=== PATIENT | male | born 1985 | race Caucasian/White ===

== ENCOUNTER 2019-10-12 19:18 | Emergency (ER) | payer SELFPAY ==
[~2019-10-12] VITALS: Ht 182.9 cm; Wt 83.9 kg
--- NOTE | 2019-10-12 19:52 | NUR ---
Pt called from waiting room, no answer
[2019-10-12 20:37] VITALS: BP_SYST 140
--- NOTE | 2019-10-12 20:42 | NUR ---
Patient triaged and placed in waiting room. VSS and patient appears in no acute distress at this time. Accompanied by self, awaiting available bed, and MD notified of need for MSE.
--- NOTE | 2019-10-12 22:10 | NUR ---
Patient to ER bed h1 for evaluation. Side rails up. Report given to Collin PARKER.
--- NOTE | 2019-10-12 22:15 | NUR ---
Pt AAOx4 ambulated into ED c/o 01/17 pain to posterior neck, lower back, L arm radiating to L wrist s/p TC @ 1030am this morning. Pt was feeling weak all day and wishes to be evaluated. +CMS to bilateral upper and lower extremities. Will continue to monitor.
--- NOTE | 2019-10-12 22:20 | NUR ---
ER Dr. Perea at bedside examining patient.
[2019-10-12] MEDS ORDERED: KETOROLAC TROMETHAMINE 60 MG/2 ML VIAL IM ONE (22:30)
--- NOTE | 2019-10-12 22:32 | NUR ---
Patient ambulated with lead medical technologist to radiology department for xrays.
--- NOTE | 2019-10-12 23:43 | NUR ---
Patient given written and verbal discharge instructions and verbalizes understanding. ER MD discussed with patient the results and treatment provided. Patient in stable condition. ID arm band removed. IV catheter removed intact and dressing applied, no active bleeding. Rx of Motrin, Tramadol given. Patient educated on pain management and to follow up with PMD. Pain Scale 0. Opportunity for questions provided and answered. Medication side effect fact sheet provided.
[2019-10-12 23:48] VITALS: BP_SYST 136
== END 2019-10-12 23:48 | disposition home or self-care (01) ==
LOC: SED 19:18
DX: S13.4XXA Sprain of ligaments of cervical spine, initial encounter (principal); S33.5XXA Sprain of ligaments of lumbar spine, initial encounter; S63.502A Unspecified sprain of left wrist, initial encounter; V43.52XA Car driver injured in collision with other type car in traffic accident, initial encounter; Y93.89 Activity, other specified; Y92.89 Other specified places as the place of occurrence of the external cause; Y99.8 Other external cause status
CPT/HCPCS: 29125; 71045; 72040; 72080; 73110; 96372; 99284; J1885

== ENCOUNTER 2020-12-15 07:49 | Emergency (ER) | payer MEDICAID, OTHER ==
[~2020-12-15] VITALS: Ht 182.9 cm; Wt 84.8 kg
[2020-12-15 07:55] VITALS: BP_SYST 157
--- NOTE | 2020-12-15 07:55 | NUR ---
ER at bedside examining patient.
--- NOTE | 2020-12-15 07:55 | NUR ---
Placed in room 8. Placed on monitoring analyst, blood pressure machine and pulse oximeter. To gown for exam. Side rails up. Report given to ELENA MUNOZ.
--- NOTE | 2020-12-15 07:55 | NUR ---
pt. brought in by girlfriend, was working in [employer] and hit back of head on a metal shelf, denies losing conscientiousness, rates pain 2/10, states was concerned because felt a small bump and has pain that radiates down neck. No reddness, no laceration, no visual hematoma, small raised area to right side of back of the head.
--- NOTE | 2020-12-15 08:05 | NUR ---
Patient transported to radiology via AMBULATION, accompanied by STAFF.
[2020-12-15] MEDS ORDERED: NAPR-1172 PO (08:24)
[2020-12-15 08:31] VITALS: BP_SYST 157
--- NOTE | 2020-12-15 08:33 | NUR ---
Patient given written and verbal discharge instructions and verbalizes understanding. ER MD discussed with patient the results and treatment provided. Patient in stable condition. ID arm band removed. Rx of NAPROXEN given. Patient educated on pain management and to follow up with PMD. Pain Scale 2/10. Opportunity for questions provided and answered. Medication side effect fact sheet provided.
== END 2020-12-15 08:33 | disposition home or self-care (01) ==
LOC: SED 07:49
DX: S09.90XA Unspecified injury of head, initial encounter (principal); Z79.899 Other long term (current) drug therapy; W22.8XXA Striking against or struck by other objects, initial encounter; Y93.89 Activity, other specified; Y92.89 Other specified places as the place of occurrence of the external cause; Y99.8 Other external cause status
CPT/HCPCS: 70450-TC; 76376; 99284

== ENCOUNTER 2021-09-10 18:31 | Emergency (ER) | payer SELFPAY ==
[~2021-09-10] VITALS: Ht 182.9 cm; Wt 86.2 kg
[~2021-09-10 18:31] MED LIST: NAPR-1172 PO
[2021-09-10 18:57] VITALS: BP_SYST 161
--- NOTE | 2021-09-10 19:30 | NUR ---
Call pt in the waiting room.No answer.
--- NOTE | 2021-09-10 19:35 | NUR ---
Call pt in the waiting room.No answer.
--- NOTE | 2021-09-10 19:40 | NUR ---
Call pt in the waiting room.No answer.
== END 2021-09-10 19:40 | disposition left against medical advice (07) ==
LOC: SED 18:31
DX: R21 Rash and other nonspecific skin eruption (principal); Z53.21 Procedure and treatment not carried out due to patient leaving prior to being seen by health care provider

== ENCOUNTER 2022-03-17 22:38 | Emergency (ER) | payer MEDICAID ==
[~2022-03-17] VITALS: Ht 182.9 cm; Wt 83.9 kg
[2022-03-17 22:55] VITALS: BP_SYST 164
[2022-03-18 00:07] LABS: BILIRUBIN,URINE NEGATIVE (NEGATIVE); BLOOD, URINE NEGATIVE (NEGATIVE); CLARITY/URINE CLEAR (CLEAR); COLOR,URINE YELLOW (YELLOW); GLUCOSE,URINE NEGATIVE (NEGATIVE); KETONES,URINE NEGATIVE (NEGATIVE); LEUKOCYTE ESTERASE ,URINE NEGATIVE (NEGATIVE); NITRITE, URINE NEGATIVE (NEGATIVE); PROTEIN URINE NEGATIVE (NEGATIVE); UROBILINOGEN,URINE 0.2 (0.2-1.0)
[2022-03-18 00:21] LABS: HEMOGLOBIN 14.6 g/dL (14.0-18.0); RED BLOOD CELL COUNT(AUTO) 4.78 MIL/uL (4.2-6.2)
[2022-03-18 00:29] LABS: BASOPHILS % (AUTO) 0.1 % (0.0-2.0); EOSINOPHILS % (AUTO) 0.1 % (0.0-4.0); HEMATOCRIT 41.2 % (36-54); LYMPHOCYTES # (AUTO) 0.7 K/uL (1.0-5.5); LYMPHOCYTES % (AUTO) 8.6 % (20.5-51.5); MEAN CORPUSCULAR HEMOGLOBIN 31 pg (27-31); MEAN CORPUSCULAR HGB CONC 36 % (32-36); MEAN CORPUSCULAR VOLUME 86 fL (79.0-98.0); MONOCYTES # (AUTO) 0.2 K/uL (0.0-1.0); MONOCYTES % (AUTO) 2.8 % (1.7-9.3); NEUTROPHILS # (AUTO) 7.2 K/uL (1.8-7.7); NEUTROPHILS % (AUTO) 88.4 % (40.0-70.0); PLATELET COUNT (AUTO) 269 K/uL (130-430); RED CELL DISTRIBUTION WIDTH 12.9 % (9.0-15.0); WHITE BLOOD COUNT (AUTO) 8.1 K/uL (4.8-10.8)
[2022-03-18 00:30] LABS: CALCIUM 9.2 mg/dL (8.4-11.0); CREATININE 0.93 mg/dL (0.55-1.30); POTASSIUM 4.1 mmol/L (3.5-5.1)
[2022-03-18 00:36] LABS: TOTAL BILIRUBIN 0.3 mg/dL (0.0-1.0)
[2022-03-18 01:37] VITALS: BP_SYST 124
== END 2022-03-18 01:35 | disposition home or self-care (01) ==
LOC: SED 22:38
DX: K52.9 Noninfective gastroenteritis and colitis, unspecified (principal); Z79.899 Other long term (current) drug therapy
CPT/HCPCS: 36415; 76870-TC; 80053; 81003; 85025; 99284